=== PATIENT | male | born 1975 | race Caucasian/White ===

== ENCOUNTER 2018-10-04 12:51 | Emergency (ER) | payer OTHER ==
[~2018-10-04] VITALS: Ht 177.8 cm; Wt 90.7 kg
[2018-10-04 13:00] VITALS: BP 115/72
[2018-10-04] MEDS ORDERED: ESKALITH CR450 MG PO (13:04)
[2018-10-04] MEDS ORDERED: QUETIAPINE FUM100 MG (13:04)
[2018-10-04] MEDS ORDERED: ATIVAN1 MG PO (13:15)
== END 2018-10-04 13:22 | disposition home or self-care (01) ==
LOC: M.ERS 12:51
DX: F41.9 Anxiety disorder, unspecified (principal); F31.9 Bipolar disorder, unspecified

== ENCOUNTER 2019-09-24 13:00 | Emergency (ER) | payer OTHER ==
[~2019-09-24] VITALS: Ht 177.8 cm; Wt 88.5 kg
[~2019-09-24 13:00] MED LIST: ATIVAN1 MG PO; ESKALITH CR450 MG PO; QUETIAPINE FUM100 MG
[2019-09-24 13:39] LABS: HEMATOCRIT 41.6 % (42.0-52.0); MCH 30.8 pg (26.0-34.0); MCHC 33.7 g/dL (28.0-37.0); MCV 91.3 fL (80.0-100.0); MPV 9.4 fl. (7.2-11.1); NUCLEATED RBCS 0 /100WBC; PLATELET COUNT* 280 thou/uL (150-400); RBC 4.56 mil/uL (4.50-6.00); WBC 11.3 thou/uL (4.0-11.0)
[2019-09-24 13:49] LABS: CREATININE 1.2 mg/dL (0.6-1.3)
[2019-09-24 14:00] LABS: ALBUMIN 3.9 g/dL (3.4-5.0); TOTAL BILIRUBIN 0.5 mg/dL (<0.1-1.0); TOTAL PROTEIN 7.1 g/dL (6.4-8.2)
[2019-09-24 14:21] LABS: ABSOLUTE BASOPHILS 0.1 thou/uL (0.0-0.2); ABSOLUTE EOSINOPHILS 1.5 thou/uL (0.0-0.7); ABSOLUTE LYMPHOCYTES 3.5 thou/uL (0.8-5.3); ABSOLUTE MONOCYTES 0.1 thou/uL (0.0-1.2); ABSOLUTE NEUTROPHILS 6.1 thou/uL (1.6-8.1); ATYPICAL LYMPHS 2 %; PLATELET ESTIMATE ADEQUATE
--- NOTE | 2019-09-24 14:42 | EKG ---
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
[2019-09-24] MEDS ORDERED: VENTOLIN HFA 1818 GM INH (15:08)
[2019-09-24] MEDS ORDERED: PROMETH-CODEIN 65 ML PO (15:08)
[2019-09-24] MEDS ORDERED: ZPAK PO (15:08)
[2019-09-24 15:17] VITALS: BP 115/70
== END 2019-09-24 15:18 | disposition home or self-care (01) ==
LOC: M.ERS 13:00
PROVIDERS: Nurse Practitioner Family
DX: J06.9 Acute upper respiratory infection, unspecified (principal); Z20.828 Contact with and (suspected) exposure to other viral communicable diseases; F17.210 Nicotine dependence, cigarettes, uncomplicated

== ENCOUNTER 2020-09-10 12:14 | Emergency (ER) | payer OTHER ==
[~2020-09-10] VITALS: Ht 177.8 cm; Wt 90.7 kg
[~2020-09-10 12:14] MED LIST changes: +PROMETH-CODEIN 65 ML PO; +VENTOLIN HFA 1818 GM INH; +ZPAK PO
[2020-09-10] MEDS ORDERED: INDERAL 20 MG T20 M1 PO (12:21)
[2020-09-10 13:57] LABS: ABSOLUTE BASOPHILS 0.1 thou/uL (0.0-0.2); ABSOLUTE EOSINOPHILS 0.9 thou/uL (0.0-0.7); ABSOLUTE LYMPHOCYTES 2.8 thou/uL (0.8-5.3); ABSOLUTE MONOCYTES 0.9 thou/uL (0.0-1.2); ABSOLUTE NEUTROPHILS 6.5 thou/uL (1.6-8.1); BASOPHILS 0.9 %; EOSINOPHILS 8.3 %; HEMATOCRIT 41.6 % (42.0-52.0); MCH 30.9 pg (26.0-34.0); MCHC 33.7 g/dL (28.0-37.0); MCV 91.6 fL (80.0-100.0); MPV 9.2 fl. (7.2-11.1); NUCLEATED RBCS 0 /100WBC; PLATELET COUNT* 269 thou/uL (150-400); POLYS 57.8 %; RBC 4.54 mil/uL (4.50-6.00); WBC 11.3 thou/uL (4.0-11.0)
[2020-09-10 14:04] LABS: CALCIUM 9.6 mg/dL (8.5-10.1); CREATININE 1.3 mg/dL (0.6-1.3); POTASSIUM 4.4 mmol/L (3.5-5.1)
[2020-09-10 14:09] LABS: ALBUMIN 4.5 g/dL (3.4-5.0); TOTAL BILIRUBIN 0.7 mg/dL (<0.1-1.0); TOTAL PROTEIN 7.5 g/dL (6.4-8.2)
[2020-09-10 14:10] LABS: URINE BILIRUBIN NEGATIVE (Negative); URINE BLOOD NEGATIVE (Negative); URINE CLARITY CLEAR; URINE COLOR YELLOW; URINE GLUCOSE-RANDOM NEGATIVE (Negative); URINE KETONES NEGATIVE (Negative); URINE LEUKOCYTES-REFLEX NEGATIVE (Negative); URINE NITRITE-REFLEX NEGATIVE (Negative); URINE PROTEIN NEGATIVE (Negative); URINE SPECIFIC GRAVITY <= 1.005 (1.005-1.030); URINE UROBILINOGEN 0.2 E.U./dl (0.2-1.0)
[2020-09-10 14:30] VITALS: BP 123/75
[2020-09-10] MEDS ORDERED: VISTARIL 25 MG25 M1 PO (14:30)
--- NOTE | 2020-09-11 15:07 | EKG ---
[place] [address] ELECTROCARDIOGRAM REPORT Name: TYRONE NGUYEN Room: [facility]#: [id number] Admission: 09/10/20 Attend Phys: Discharge: 09/10/20 Date of : 79 Date of Service: 09/10/20 1224 Report #: [id number] THIS REPORT FOR: //name// [facility] ED Test Date: 2020-09-10 Test Time: 12:24:18 Pat Name: TYRONE NGUYEN Department: Room: Gender: Food Sanitarian: [facility] : 1975 Requested By: Kdae Kim Order Number: [id number] MD: Danis Dodd Measurements Intervals [place] Rate: 79 P: 65 DC: 126 QRS: 82 QRSD: 95 T: 44 QT: 385 QTc: 442 Interpretive Statements Sinus rhythm Compared to ECG 09/24/2019 13:22:59 No significant changes Electronically Signed On 09-11-2020 15:07:42 CDT by Danis Dodd [email or web address] <ELECTRONICALLY SIGNED> By: Danis Dodd MD, [facility] 09/11/20 1507 1224 1224 Danis Dodd MD, [facility] /EPI
== END 2020-09-10 14:30 | disposition home or self-care (01) ==
LOC: M.ERS 12:14
PROVIDERS: Physician Assistant
DX: F41.9 Anxiety disorder, unspecified (principal); F17.210 Nicotine dependence, cigarettes, uncomplicated